=== PATIENT | male | born 1990 | race Caucasian/White ===

== ENCOUNTER 2017-01-18 22:36 | Emergency (ER) | payer OTHER ==
[~2017-01-18] VITALS: Ht 188 cm; Wt 129.4 kg
[~2017-01-18 22:36] MED LIST: OXYC-57 PO
[2017-01-18 22:42] VITALS: TEMP 36.3; Ht 188 cm; Wt 129.4 kg
[2017-01-18] MEDS ORDERED: ONDANSETRON INJ 2 MG/ML 2 ML VIAL IV STA (22:51)
[2017-01-18] MEDS ORDERED: SODIUM CHLORIDE 0.9% 1000ML 1,000 ML, SODIUM CHLORIDE 0.9% 1000ML 1,000 ML IV ONE (23:00)
[2017-01-18] MEDS ORDERED: ONDANSETRON 8 MG/54 ML D5W ONE (23:09)
[2017-01-18 23:12] LABS: BASO % 0.1 %; BASO ABS # 0.01 K/uL (0-0.2); COMPLETE YES; HEMATOCRIT 49.7 % (42-52); IG% 0.4 %; LYMPH % 7.1 %; LYMPH ABS # 1.19 K/uL (1.2-3.4); MEAN CELL VOLUME 82.4 fL (80-100); MEAN CORPUSCULAR HEMOGLOBIN 29.9 pg (25-34); MEAN CORPUSCULAR HGB CONC 36.2 g/dl (32-36); MEAN PLATELET VOLUME 10.7 fL (7.4-10.4); MONO % 3.8 %; NEUT % 88.6 %; PLATELET COUNT 328 K/uL (130-400); RED BLOOD COUNT 6.03 M/uL (4.7-6.1); WHITE BLOOD COUNT 16.73 K/uL (4.8-10.8)
[2017-01-18 23:35] LABS: BUN/CREATININE RATIO 13.5 (10-20); CREATININE 2.4 mg/dl (0.60-1.40); POTASSIUM 4.2 mmol/L (3.5-5.1)
[2017-01-18 23:38] LABS: ALB/GLOB RATIO 1.2 (0.9-2)
[2017-01-18] MEDS ORDERED: SODIUM CHLORIDE 0.9% 1000ML 1,000 ML IV ONE (23:45)
[2017-01-19] MEDS ORDERED: ONDA4TAB10 SL (02:31)
[2017-01-19] MEDS ORDERED: ONDANSETRON HOME PACK 4MG OD TAB PO ONE (02:45)
[2017-01-19 02:54] VITALS: BP 136/70; PULSE 74; O2SAT 98
--- NOTE | 2017-01-19 03:18 | EMERGENCY ROOM VISIT NOTE ---
History First contact with patient: 22:44 Chief Complaint: VOMITING Stated Complaint: VOMITING - CAN'T KEEP ANYTHING DOWN - STOMACH PAIN Nursing Triage Summary: patient c/o persistent vomiting since this am that has not improved along with abdominal pain/ History of Present Illness The patient is a 26 year old male who presents to the Emergency Room with complaints of vomiting for the past 10 hours. The patient states that he ate at a [employer] food restaurant for lunch, at about 2 hours later he began with his symptoms. The patient states that he has abdominal cramping just prior to the vomiting, and has felt nauseated ever since. He has not had diarrhea or constipation. He has not urinated in about 4 or 5 hours. The patient has not had fever or chills. No recent antibiotic use. No known exposure to disease. He rates his discomfort an 8/10. His emesis is primarily water at this point, but was initially food. He does not have a history of abdominal surgery considers himself otherwise usually healthy. Review of Systems More than 10 systems were reviewed and otherwise negative with the exception of history of present illness. Past Medical/Surgical History No chronic medical disease Family History No pertinent family history Social History Smoking Status: Never Smoker Housing Status: lives with family Occupation Status: employed Current/Historical Medications Scheduled Ondasetron Odt (Zofran Odt), 4 MG SL Q6H Physical Exam Vital Signs Date Time Temp Pulse Resp B/P (MAP) Pulse Ox O2 Delivery O2 Flow Rate FiO2 01/19/17 02:54 74 20 136/70 98 01/19/17 01:15 76 20 120/84 98 01/18/17 23:57 78 20 118/81 97 01/18/17 22:42 36.3 92 16 124/93 95 Room Air Pain Rating (0-10): 2.0 Physical Exam VITALS: Vitals are noted on the nurse's note and reviewed by myself. Vital signs stable. GENERAL: Well-developed, well-nourished, white male who is holding an emesis bag upon my arrival to the room. He appears uncomfortable but is cooperative with the examination. He does have some mild petechia around the orbits MOUTH: Mucous membranes moist. Tonsils are not enlarged. Pharynx without erythema, blood, or exudate. Uvula midline. Airway patent. NECK: Supple without nuchal rigidity. No lymphadenopathy. No thyromegaly. Cervical spine is nontender. HEART: Regular rate and rhythm without murmurs gallops or rubs. LUNGS: Clear to auscultation bilaterally without wheezes, rales or rhonchi. No retractions or accessory muscle use. ABDOMEN: Positive normal bowel sounds x 4. Soft, nontender, without masses or organomegaly. No guarding or rebound tenderness. SKIN: The skin was without rash or tenting Medical Decision & Procedures Laboratory Results 01/18/17 23:00 Red Blood Count 6.03, Mean Corpuscular Volume 82.4, Mean Corpuscular Hemoglobin 29.9, Mean Corpuscular Hemoglobin Concent 36.2, Mean Platelet Volume 10.7, Neutrophils (%) (Auto) 88.6, Lymphocytes (%) (Auto) 7.1, Monocytes (%) (Auto) 3.8, Eosinophils (%) (Auto) 0.0, Basophils (%) (Auto) 0.1, Neutrophils # (Auto) 14.83, Lymphocytes # (Auto) 1.19, Monocytes # (Auto) 0.63, Eosinophils # (Auto) 0.00, Basophils # (Auto) 0.01 01/18/17 23:00 Test 01/18/17 23:00 White Blood Count 16.73 K/uL (4.8-10.8) Red Blood Count 6.03 M/uL (4.7-6.1) Hemoglobin 18.0 g/dL (14.0-18.0) Hematocrit 49.7 % (42-52) Mean Corpuscular Volume 82.4 fL (80-100) Mean Corpuscular Hemoglobin 29.9 pg (25-34) Mean Corpuscular Hemoglobin Concent 36.2 g/dl (32-36) Platelet Count 328 K/uL (130-400) Mean Platelet Volume 10.7 fL (7.4-10.4) Neutrophils (%) (Auto) 88.6 % Lymphocytes (%) (Auto) 7.1 % Monocytes (%) (Auto) 3.8 % Eosinophils (%) (Auto) 0.0 % Basophils (%) (Auto) 0.1 % Neutrophils # (Auto) 14.83 K/uL (1.4-6.5) Lymphocytes # (Auto) 1.19 K/uL (1.2-3.4) Monocytes # (Auto) 0.63 K/uL (0.11-0.59) Eosinophils # (Auto) 0.00 K/uL (0-0.5) Basophils # (Auto) 0.01 K/uL (0-0.2) RDW Standard Deviation 39.5 fL (36.4-46.3) RDW Coefficient of Variation 13.2 % (11.5-14.5) Immature Granulocyte % (Auto) 0.4 % Immature Granulocyte # (Auto) 0.07 K/uL (0.00-0.02) Anion Gap 12.0 mmol/L (3-11) Est Creatinine Clear Calc Drug Dose 66.1 ml/min Estimated GFR () 41.3 Estimated GFR (Non- 35.6 BUN/Creatinine Ratio 13.5 (10-20) Calcium Level 11.0 mg/dl (8.5-10.1) Total Bilirubin 0.8 mg/dl (0.2-1) Aspartate Amino Transf (AST/SGOT) 34 U/L (15-37) Alanine Aminotransferase (ALT/SGPT) 53 U/L (12-78) Alkaline Phosphatase 59 U/L (45-117) Total Protein 10.1 gm/dl (6.4-8.2) Albumin 5.6 gm/dl (3.4-5.0) Globulin 4.5 gm/dl (2.5-4.0) Albumin/Globulin Ratio 1.2 (0.9-2) Lipase 85 U/L (73-393) Medications Administered Medications (Trade) Dose Ordered Sig/Bernice Route Start Time Stop Time Status Last Admin Dose Admin Sodium Chloride/ Sodium Chloride 2,000 ml @ 999 mls/hr Q2H1M ONCE IV 01/18/17 23:00 01/19/17 01:00 DC 01/18/17 23:11 999 MLS/HR Ondansetron HCl (Zofran 8mg Iv) 8 mg STK-MED ONCE .ROUTE 01/18/17 23:09 01/18/17 23:10 DC 01/18/17 23:11 8 MG Sodium Chloride 1,000 ml @ 999 mls/hr Q1H1M ONCE IV 01/18/17 23:45 01/19/17 00:45 DC 01/18/17 23:57 999 MLS/HR Ondansetron HCl (ZOFRAN ODT 4MG Home Pack) 1 [facility] UD ONCE PO 01/19/17 02:45 01/19/17 02:46 DC 01/19/17 02:39 1 [facility] ED Course Physical exam and history were performed. Nursing notes, EMR, and Medication List were personally reviewed. Patient appears to have had vomiting essentially for the past 10 hours. The patient has some petechia around his eyes, concerning for episodes of violent emesis. IV access was established and labs were obtained. The patient was hydrated with 2 L normal saline and given 8 mg IV Zofran. The patient blood work is as above and was reviewed. He does have an elevated white blood cell count which was expected considering his emesis. Additionally he has a slight bump in his BUN/creatinine, which is suggestive of dehydration. He does not have a significant electrolyte imbalance otherwise. The patient was given a third liter of normal saline. On reevaluation the patient had significant improvement of his symptoms. He was able to sleep here in the emergency department comfortably. I woke patient up and his nausea was significantly improved. He was able to urinate here in the department as well as tolerate hydration by mouth. I discussed options of care with the patient including hospital admission to the hospital for further care. The patient had a strong preference for discharge home, and seeing that he appears stable and significantly improve this is reasonable. I suspect his symptoms are the result of a viral or foodborne illness. I will provide the patient a course of Zofran for home use, as well as instructions for oral hydration at home. Recommend the patient follow with his primary care physician for repeat blood work, but he states that he does not have a PCP. I did engage case management who will help the patient establish appropriate care. The patient was otherwise invited back to the ER with any new, worsening, or concerning symptoms. The chart was completed utilizing [employer] Speech Voice Recognition Software. Grammatical errors, random word insertions, pronoun errors, and incomplete sentences are an occasional consequence of this system due to software limitations, ambient noise, and hardware issues. Any formal questions or concerns about the content, text, or information contained within the body of this dictation should be directly addressed to the provider for clarification. . Medical Decision Differential diagnosis: Etiologies such as gastroenteritis, food borne illness, infections, appendicitis , diverticulitis, inflammatory bowel disease, obstruction, GI bleed, biliary pathology, as well as others were entertained. Medication Reconcilliation Current Medication List: was personally reviewed by me Blood Pressure Screening Blood pressure disposition: Elevated BP felt to be situational Impression Primary Impression: Nausea and vomiting Additional Impression: Dehydration Departure Information Dispostion Home / Self-Care Condition GOOD Prescriptions Ondasetron Odt (ZOFRAN ODT) 4 Mg Tab 4 MG SL Q6H for Nausea, #10 TAB Prov: Joni Correa PA-C 01/19/17 Forms HOME CARE DOCUMENTATION FORM, IMPORTANT VISIT INFORMATION Patient Instructions My [facility] Additional Instructions You were seen and evaluated today on an emergency basis only. This is not a substitute for, or an effort to provide, complete comprehensive medical care. It is not possible to recognize and treat all injuries or illnesses in a single emergency department visit. For this reason it is recommended that you followup with your primary care physician next week for ongoing care and evaluation. Use the resources provided by case management to help establish with a primary care physician. You will need repeat blood work to make sure your kidney function has returned to normal. Drink plenty of water and remain well hydrated. Zofran 1 tablet every 6 hrs as needed for nausea. You are welcome to return to the emergency department anytime with new, worsening, or concerning symptoms. Problem Qualifiers
== END 2017-01-19 02:54 | disposition home or self-care (01) ==
LOC: C.EDB 22:37
DX: R11.2 Nausea with vomiting, unspecified (principal); E86.0 Dehydration

== ENCOUNTER 2023-12-08 10:53 | Inpatient (IN) ==
[2023-12-08] MEDS: KETOROLAC TROMETHAMINE 15 MG/ML VIAL IM STA (11:42)
--- NOTE | 2023-12-08 11:46 | Emergency Department Note ---
Impression & Plan T12 compression fracture, Closed T11 fracture ED Provider Note NAME: LORETO MAYER III AGE: 33 SEX: M : 1990 ARRIVES VIA: Walk-In INFORMANT: [Patient][, ] ED PROVIDER(S): [Higinio Segura MD] CHIEF COMPLAINT: Fall downstairs HPI: This is a 33-year-old male senting for fall downstairs. Patient states that he was drinking alcohol last night when he walked into a dark part of the house and fell down a flight of stairs. He states he does not member exactly how he fell down but is never the incident and did not lose consciousness at that time. He did not blackout. He notes 9/10 pain in his lower back. He notes pain with range of motion. No numbness, tingling. He has had previous cervical spine surgery and does not have any pain there. No head pain. No pain to extremities. Does have slight abrasions to the bilateral upper extremities. ROS: See above HPI for pertinent positives & negatives. A total of [10] systems reviewed and were otherwise negative. PHYSICAL EXAMINATION: General: resting comfortably in no acute distress Head: Normocephalic and atraumatic Eyes: Normal inspection, extraocular muscles intact Ear, nose, throat: Normal external exam Neck: Normal range of motion Respiratory: lungs clear to auscultation bilaterally Cardiovascular: Regular rate/rhythm, no murmur Back: Lower thoracic upper lumbar tenderness to palpation, no obvious step-offs GI: soft, nontender, no guarding or rebound Extremities: nontender, moves all extremities Neuro: The patient awake and alert, appropriately conversive, no focal deficits, symmetric faces Skin: Warm, dry, and intact MEDICAL DECISION MAKING: This is a 33-year-old male presenting after a fall downstairs. Patient notes lower thoracic/upper lumbar pain. Will do CT of such to help with elucidate any compression fractures. No cauda equina type symptoms at this time. No cord type syndromes clinically. -CT imaging does reveal a T11 superior endplate fracture with mild displacement. Otherwise there is a compression fracture of T12 with 5 mm retropulsion. -Discussed care with Dr. Kirk, orthopedic spinal surgeon, who recommends admission for pain control and back brace -[facility] -Routine blood work ordered for hospital service Differential diagnosis: Compression fracture, lumbar radiculopathy, cauda equina Past Med/Surg History Problem List (Updated 12/08/23 @ 16:20 by Higinio Segura MD) T12 compression fracture (Acute) Closed T11 fracture (Acute) Fall No significant past medical history Surgical History S/P cervical spinal fusion ACDF C6-7, Posterior fusion C5-7 for trauma 2011 History of arthroscopy of knee History of tonsillectomy Social History Smoking Status: Current some day smoker Preferred Language: British Feels Safe at Home: Yes Allergies Allergies Allergy/AdvReac Type Severity Reaction Status Date / Time Sulfa (Sulfonamide Allergy Hives Unverified 12/08/23 14:19 Antibiotics) Home Meds Home Medications Medication Instructions Recorded Confirmed Tylenol 1 tab PO UD PRN Pain 12/08/23 12/08/23 Previous Rx's Medication Instructions Recorded ondansetron 4 mg disintegrating 4 mg PO Q6H PRN nausea and 11/19/19 tablet vomiting #20 tabs promethazine 25 mg tablet 25 mg PO Q6H PRN nausea and 11/19/19 vomiting #20 tabs Results & Data (ED) Vital Signs Vital Signs - 24 hr 12/08/23 10:57 12/08/23 13:16 12/08/23 15:44 Temperature 36.8 C Temperature Source Temporal Artery Scan Pulse Rate 84 Pulse Rate [Left Finger] 70 89 Respiratory Rate 18 17 20 Respiratory Effort / Characteristics Non-Labored Spontaneous Respiratory Depth Normal Blood Pressure 129/78 Blood Pressure [Left Arm] 131/84 131/82 Blood Pressure Mean 95 Blood Pressure Mean [Left Arm] 99 98 Blood Pressure Position [Left Arm] Lying Pulse Oximetry 100 98 97 Oxygen Delivery Method Room Air Room Air Room Air Sepsis Recent Fever Within 48 Hours No Sepsis New/Unexplained Change in Mental Status No Sepsis Action Taken by Nursing No Action Required Laboratory Data 12/08/23 13:45 12/08/23 13:45 Lab Results 12/08/23 Range/Units 13:45 WBC 14.00 H (4.8-10.8) K/ul RBC 4.93 (4.70-6.10) M/uL Hgb 14.2 (14.0-18.0) g/dl Hct 42.5 (42.0-52.0) % MCV 86.2 (80.0-100.0) fL MCH 28.8 (25.0-34.0) pg MCHC 33.4 (32.0-36.0) g/dL RDW Std Deviation 43.5 (36.4-46.3) fL RDW Coeff of Amy 13.9 (11.5-14.5) % Plt Count 199 (130-400) K/uL MPV 10.6 (9.4-12.4) fL Immature Gran % (Auto) 0.5 % Neut % (Auto) 78.3 % Lymph % (Auto) 15.2 % [place] % (Auto) 5.5 % Eos % (Auto) 0.3 % Baso % (Auto) 0.2 % Neut # (Auto) 10.96 H (1.40-6.50) K/uL Lymph # (Auto) 2.13 (1.20-3.40) K/uL [place] # (Auto) 0.77 H (0.11-0.59) K/uL Eos # (Auto) 0.04 (0.00-0.50) K/uL Baso # (Auto) 0.03 (0.00-0.20) K/uL Immature Gran # (Auto) 0.07 (0.01-0.20) K/uL Sodium 142 (136-145) mmol/L Potassium 4.0 (3.5-5.1) mmol/L Chloride 106 (98-107) mmol/L Carbon Dioxide 27 (21-32) mmol/L Anion Gap 9 (3-11) BUN 11 (6-23) mg/dl Creatinine 0.89 (0.6-1.4) mg/dl Est Cr Clr Drug Dosing 132.2 ml/min Est GFR ( Amer) 129.3 ml/min Est GFR (Non-Af Amer) 111.6 ml/min BUN/Creatinine Ratio 12.4 (10-20) Glucose 87 (70-99(Fasting)) mg/dl Calcium 9.1 (8.6-10.3) mg/dl Administered Medications Discontinued Medications Ketorolac Tromethamine (Ketorolac Tromethamine 15 Mg/Ml Vial) 15 mg IM NOW STA Stop: 12/08/23 11:39 Last Admin: 12/08/23 11:42 Dose: 15 mg Documented By: SANTIAGO Oxycodone HCl (Oxycodone Hcl Ir 5 Mg Tab (Immediate Release)) 5 mg PO NOW STA Stop: 12/08/23 12:32 Last Admin: 12/08/23 12:36 Dose: 5 mg Documented By: SANTIAGO Imaging Data Radiologist's Impression: Lumbar Spine CT 12/08/23 11:36 CT lumbar spine wo con CLINICAL HISTORY: fall, lower thoracic, upper lumbar pain TECHNIQUE: Multidetector row helical CT of the lumbar spine was performed without administration of intravenous contrast. Coronal and sagittal reformations were obtained. Automated dose lowering techniques and/or adjustment according to patient size were utilized for this exam. CT DOSE: 2132.35 mGy.cm Comparison: None available at the time of this dictation. FINDINGS: For counting purposes, the last complete intervertebral disc space is considered L5-S1. No acute fractures are identified in the lumbar spine. Vertebral body heights and disk spaces are well maintained. Vertebral body alignment is within normal limits. Surrounding soft tissues are unremarkable. IMPRESSION: No acute fractures of the lumbar spine. Please see CT thoracic spine for findings of T11 and T12 fractures. ACT 112: Negative or not required by law. Electronically signed by: Junior Thomas M.D. 12/08/2023 1:[address] 12/08/23 11:36 CT thoracic spine wo con CLINICAL HISTORY: fall, lower thoracic, upper lumbar pain TECHNIQUE: Multidetector row helical CT of the thoracic spine was performed without administration of intravenous contrast. Coronal and sagittal reformations were obtained. Automated dose lowering techniques and/or adjustment according to patient size were utilized for this exam. Comparison: Comparison is made to CT thoracic spine 09/02/2011 FINDINGS: There is an acute compression fracture of T12 with approximately 5 mm retropulsion. There is also a minimally displaced fracture of the superior endplate of T11. Vertebral body alignment is within normal limits. Surrounding soft tissues are unremarkable. IMPRESSION: Compression fractures are seen in T11 and T12, there is 5 mm retropulsion at T12 fracture. ACT 112: Negative or not required by law. Electronically signed by: Junior Thomas M.D. 12/08/2023 12:51 PM Discharge Plan Visit Data Chief Complaint: Back Injury/Pain Stated Complaint: BACK PAIN, FALL DOWN STAIRS LAST NIGHT ED Provider: Higinio Segura Discharge Problem: T12 compression fracture, Closed T11 fracture Patient Disposition: Admitted As Inpatient Discharge Instructions Interventions: ED Discharge Assessment Last Done: 12/08/23 15:51 Forms Stand Alone Forms: [facility], [facility], Important Visit Information Prescriptions Prescriptions: No Action promethazine 25 mg tablet 25 mg PO Q6H PRN (Reason: nausea and vomiting) Qty: 20 0RF ondansetron 4 mg tablet,disintegrating 4 mg PO Q6H PRN (Reason: nausea and vomiting) Qty: 20 0RF Tylenol 1 tab PO UD PRN (Reason: Pain) Rx Instructions: otc, as directed Referrals Referrals: PCP,NO [Primary Care Provider] -
[2023-12-08] MEDS: oxyCODONE HCL IR 5 MG TAB (IMMEDIATE RELEASE) PO STA (12:36)
--- NOTE | 2023-12-08 12:54 | CT Scan Report ---
CT thoracic spine wo con CLINICAL HISTORY: fall, lower thoracic, upper lumbar pain TECHNIQUE: Multidetector row helical CT of the thoracic spine was performed without administration of intravenous contrast. Coronal and sagittal reformations were obtained. Automated dose lowering techn iques and/or adjustment according to patient size were utilized for this exam. Comparison: Comparison is made to CT thoracic spine 09/02/2011 FINDINGS: There is an acute compression fracture of T12 with approximately 5 mm retropulsion. There is also a m inimally displaced fracture of the superior endplate of T11. Vertebral body alignment is within jayy l limits. Surrounding soft tissues are unremarkable. IMPRESSION: Compression fractures are seen in T11 and T12, there is 5 mm retropulsion at T12 fracture. ACT 112: Negative or not required by law. Electronically signed by: Junior Thomas M.D. 12/08/2023 12:51 PM
--- NOTE | 2023-12-08 13:27 | CT Scan Report ---
CT lumbar spine wo con CLINICAL HISTORY: fall, lower thoracic, upper lumbar pain TECHNIQUE: Multidetector row helical CT of the lumbar spine was performed without administration of i ntravenous contrast. Coronal and sagittal reformations were obtained. Automated dose lowering techniq ues and/or adjustment according to patient size were utilized for this exam. CT DOSE: 2132.35 mGy.cm Comparison: None available at the time of this dictation. FINDINGS: For counting purposes, the last complete intervertebral disc space is considered L5-S1. No acute fractures are identified in the lumbar spine. Vertebral body heights and disk spaces are wel l maintained. Vertebral body alignment is within normal limits. Surrounding soft tissues are unremark able. IMPRESSION: No acute fractures of the lumbar spine. Please see CT thoracic spine for findings of T11 and T12 frac tures. ACT 112: Negative or not required by law. Electronically signed by: Junior Thomas M.D. 12/08/2023 1:26 PM
[2023-12-08 14:12] LABS: Basophils # (auto) 0.03 K/uL (0.00-0.20); Basophils % (auto) 0.2 %; Eosinophils # (auto) 0.04 K/uL (0.00-0.50); Eosinophils % (auto) 0.3 %; Hematocrit (blood only) 42.5 % (42.0-52.0); Hemoglobin 14.2 g/dl (14.0-18.0); Immature Granulocytes # (auto) 0.07 K/uL (0.01-0.20); Immature Granulocytes % (auto) 0.5 %; Lymphocytes # (auto) 2.13 K/uL (1.20-3.40); Lymphocytes % (auto) 15.2 %; Mean Corpuscular Hemoglobin 28.8 pg (25.0-34.0); Mean Corpuscular Hgb Conc 33.4 g/dL (32.0-36.0); Mean Corpuscular Volume 86.2 fL (80.0-100.0); Mean Platelet Volume 10.6 fL (9.4-12.4); Monocytes # (auto) 0.77 K/uL (0.11-0.59); Monocytes % (auto) 5.5 %; Neutrophils # (auto) 10.96 K/uL (1.40-6.50); Neutrophils % (auto) 78.3 %; Platelet Count 199 K/uL (130-400); RDW Coefficient of Variation 13.9 % (11.5-14.5); RDW Standard Deviation 43.5 fL (36.4-46.3); Red Blood Count 4.93 M/uL (4.70-6.10)
--- NOTE | 2023-12-08 14:14 | History & Physical Report ---
Date of Service December 08, 2023 Assessment & Plan (1) Fall: (2) Closed T11 fracture: (3) T12 compression fracture: Plan 33 year old man presented with back pain after fall CT Thoracic and Lumbar spine showed T11 and T12 fracture Admit for observation, pain control and Ortho Spine surgery evaluation Scheduled tylenol Oxycodone prn mild to moderate pain IV morphine 2mg q6h prn severe pain Bowel regimen Lidocaine patch PT/OT eval Ortho spine surgery consulted. Will keep NPO PMN in case surgery is needed May need brace Counseled regarding smoking and alcohol use DVT ppx: SCD for now Code status: Full Code I spent a total of 60 minutes coordinating, documenting and providing care for this patient excluding time spent in performance of separately billed services History of Present Illness Chief Complaint: Back pain Primary Care Provider: NO PCP 33 year old man with history of cervical surgery about 9 years ago who presents with acute back pain that started after a fall yesterday. History provided by patient and parents at bedside He was at his [id number]'s wedding yesterday and had fallen down some stairs. He reported it was dark there and missed his step. He denied any head trauma or LOC Developed back pain which is constant, severe, not referred, worse with movement Denied any Lower extremity paresthesias, saddle paresthesia, bowel/urinary incontinence Denied cough, chest pain, SOB Denied headache, dizziness, nausea, vomiting, abd pain, diarrhea, constipation Denied dysuria, freq, urgency, hematuria Denied fever or chills He reported he had drank some alcohol at the event. Does not drink daily. Last drink before the event was a year ago Reports medical marijuana use for his chronic neck pain. No neck pain at the moment Smokes a few cigarettes occasionally. Not daily. Chews tobacco Denied any other drug use Denied Family med hx Reports allergic reaction to Sulfa drugs (Hives) Allergies Allergy/AdvReac Type Severity Reaction Status Date / Time Sulfa (Sulfonamide Allergy Hives Unverified 12/08/23 14:19 Antibiotics) Home Medications Medication Instructions Recorded Confirmed Type ondansetron 4 mg disintegrating 4 mg PO Q6H PRN nausea and 11/19/19 12/08/23 Rx tablet vomiting #20 tabs promethazine 25 mg tablet 25 mg PO Q6H PRN nausea and 11/19/19 12/08/23 Rx vomiting #20 tabs Tylenol 1 tab PO UD PRN Pain 12/08/23 12/08/23 History Past Med/Surg History Problem List (Updated 12/08/23 @ 14:50 by Janis Galvan MD) T12 compression fracture Closed T11 fracture Fall No significant past medical history Surgical History S/P cervical spinal fusion ACDF C6-7, Posterior fusion C5-7 for trauma 2011 History of arthroscopy of knee History of tonsillectomy Social History Smoking Status: Current some day smoker Preferred Language: Bengali Feels Safe at Home: Yes Review of Systems Review of Systems: All systems reviewed & are unremarkable except as noted in HPI & below Physical Exam Constitutional: + well hydrated; no acute distress Eyes: PERRL, conjunctivae normal, anicteric sclerae ENMT: external ear and nose normal, oropharynx normal Respiratory: normal respiratory effort, lungs clear to auscultation Cardiovascular: RRR, no murmur, no edema Gastrointestinal (Abdomen): normal bowel sounds, soft, nontender, no hepatosplenomegaly Musculoskeletal: no cyanosis or clubbing, extremities motor strength 5/5 Tenderness over lower Thoracic spine No pedal edema Neurologic: PERRL, EOMI, accommodation nl, no face palsy, no dysarthria Psychiatric: A+Ox3, euthymic affect Results & Data Results & Data Vital Signs (Past 12 Hours) Vital Signs Temp Pulse Pulse Resp BP BP Pulse Ox 12/08/23 13:16 70 17 131/84 98 12/08/23 10:57 36.8 C 84 18 129/78 100 O2 Del Method 12/08/23 13:16 Room Air 12/08/23 10:57 Room Air Laboratory Results Abnormal lab results 12/08/23 Range/Units 13:45 WBC 14.00 H (4.8-10.8) K/ul Neut # (Auto) 10.96 H (1.40-6.50) K/uL [place] # (Auto) 0.77 H (0.11-0.59) K/uL Diagnostic Findings CT thoracic spine wo con CLINICAL HISTORY: fall, lower thoracic, upper lumbar pain TECHNIQUE: Multidetector row helical CT of the thoracic spine was performed without administration of intravenous contrast. Coronal and sagittal reformations were obtained. Automated dose lowering techniques and/or adjustment according to patient size were utilized for this exam. Comparison: Comparison is made to CT thoracic spine 09/02/2011 FINDINGS: There is an acute compression fracture of T12 with approximately 5 mm retropulsion. There is also a minimally displaced fracture of the superior endplate of T11. Vertebral body alignment is within normal limits. Surrounding soft tissues are unremarkable. IMPRESSION: Compression fractures are seen in T11 and T12, there is 5 mm retropulsion at T12 fracture. CT lumbar spine wo con CLINICAL HISTORY: fall, lower thoracic, upper lumbar pain TECHNIQUE: Multidetector row helical CT of the lumbar spine was performed without administration of intravenous contrast. Coronal and sagittal reformations were obtained. Automated dose lowering techniques and/or adjustment according to patient size were utilized for this exam. CT DOSE: 2132.35 mGy.cm Comparison: None available at the time of this dictation. FINDINGS: For counting purposes, the last complete intervertebral disc space is considered L5-S1. No acute fractures are identified in the lumbar spine. Vertebral body heights and disk spaces are well maintained. Vertebral body alignment is within normal limits. Surrounding soft tissues are unremarkable. IMPRESSION: No acute fractures of the lumbar spine. Please see CT thoracic spine for findings of T11 and T12 fractures. Code Status & VTE Plan Code Status Full code
[2023-12-08 14:26] LABS: BUN Creatinine Ratio 12.4 (10-20); Calcium 9.1 mg/dl (8.6-10.3); Creatinine Clr Calc Pharmacy 132.2 ml/min; Est GFR (African American) 129.3 ml/min; Est GFR (Non-African American) 111.6 ml/min
[2023-12-08] MEDS ORDERED: POLYETHYLENE (MIRALAX) 17 GM PACK PO PRN (16:38)
[2023-12-08] MEDS: MoRPHine SULFATE 2 MG/ML CARP IV PRN (16:50)
[2023-12-08] MEDS: ONDANSETRON 4 MG OD TAB PO PRN (16:52)
[2023-12-08] MEDS: LIDOCAINE 5% 1 PATCH TD SCH (17:59)
[2023-12-08] MEDS: ACETAMINOPHEN 500 MG TAB PO SCH (20:43)
[2023-12-08] MEDS: oxyCODONE HCL IR 5 MG TAB (IMMEDIATE RELEASE) PO PRN (20:44)
[2023-12-09] MEDS: oxyCODONE HCL IR 5 MG TAB (IMMEDIATE RELEASE) PO PRN (01:10)
[2023-12-09 07:36] LABS: Hematocrit (blood only) 40.7 % (42.0-52.0); Hemoglobin 13.5 g/dl (14.0-18.0); Mean Corpuscular Hemoglobin 28.8 pg (25.0-34.0); Mean Corpuscular Hgb Conc 33.2 g/dL (32.0-36.0); Mean Corpuscular Volume 86.8 fL (80.0-100.0); Mean Platelet Volume 10.6 fL (9.4-12.4); Platelet Count 168 K/uL (130-400); RDW Coefficient of Variation 13.8 % (11.5-14.5); RDW Standard Deviation 43.4 fL (36.4-46.3); Red Blood Count 4.69 M/uL (4.70-6.10); White Blood Count 12.41 K/ul (4.8-10.8)
[2023-12-09 08:04] LABS: Albumin Globulin Ratio 1.8 (0.9-2); Albumin Level 4.1 gm/dl (3.4-5.0); BUN Creatinine Ratio 13.5 (10-20); Bilirubin,Total 0.9 mg/dl (0.2-1.0); Calcium 8.7 mg/dl (8.6-10.3); Creatinine Clr Calc Pharmacy 113.1 ml/min; Est GFR (African American) 108.1 ml/min; Est GFR (Non-African American) 93.2 ml/min; Globulin 2.3 gm/dl (2.5-4.0); Potassium 3.7 mmol/L (3.5-5.1); Total Protein 6.4 gm/dl (6.0-8.3)
[2023-12-09] MEDS: SENNA 8.6 MG TAB PO SCH (08:25)
--- NOTE | 2023-12-09 09:21 | Orthopedic Consultation ---
Date of Consultation December 09, 2023 Assessment & Plan (1) T12 compression fracture: Assessment T11 compression fracture T12 burst type fracture. Plan at this time at length yesterday with the patient regarding his fracture patterns and treatment options. At this point we will attempt to treat these nonoperative. Will have him placed with a TLSO brace. Once this is available we will attempt physical therapy. I would like to obtain thoracolumbar x-rays most likely Saturday after he has been up with therapy. He is to lift no more than 5 pounds. Maintain bowel regimen. History of Present Illness Reason for Consultation: T11-T12 compression fracture Attending Physician: Janis Galvan MD History of Present Illness This is a 33-year-old male who presents after fall Saturday evening. He fell down some steps. It was dark and was unable to navigate stairs. He describes mid thoracolumbar back pain. There is no numbness tingling into the lower extremities or perineal area. He denies any strength deficits. Allergies Allergy/AdvReac Type Severity Reaction Status Date / Time Sulfa (Sulfonamide Allergy Hives Unverified 12/08/23 14:19 Antibiotics) Home Medications Medication Instructions Recorded Confirmed Type ondansetron 4 mg disintegrating 4 mg PO Q6H PRN nausea and 11/19/19 12/08/23 Rx tablet vomiting #20 tabs promethazine 25 mg tablet 25 mg PO Q6H PRN nausea and 11/19/19 12/08/23 Rx vomiting #20 tabs Tylenol 1 tab PO UD PRN Pain 12/08/23 12/08/23 History Patient History Surgical History S/P cervical spinal fusion ACDF C6-7, Posterior fusion C5-7 for trauma 2011 History of arthroscopy of knee History of tonsillectomy Social History Smoking Status: Current every day smoker Tobacco Type: Cigarettes Second Hand Exposure: Yes; Do You Dip or Chew Tobacco: Yes; Tobacco Cessation Education Requested by Patient: No Hx Alcohol Use: Yes Alcohol type: hard liquor Hx Substance Use: Yes Last Used Substance Other:: smokes marijuana yesterday Preferred Language: Swedish Communication Ability: Effective Esol Instructor Required: No Beliefs That Will Affect Care: None Current Living Situation: Spouse and Family Other Information That Helps Us Care for You: No Feels Safe at Home: Yes Safety Concerns: Feels Safe At This Time Assistive Devices: None Physical Exam Physical Exam: On exam patient is lying in bed. He has excellent strength detailed testing lower extremities with plantarflexion dorsiflexion quadriceps. Sensory is symmetric and intact. Results & Data Vital Signs (Past 12 Hours) Vital Signs Temp Pulse Resp BP Pulse Ox O2 Del Method 12/09/23 07:10 36.5 C 52 L 18 146/82 H 99 Room Air 12/08/23 21:34 Room Air
--- NOTE | 2023-12-09 11:32 | Hospitalist Progress Note ---
Date of Service December 09, 2023 Assessment & Plan (1) Fall: (2) Closed T11 fracture: (3) T12 compression fracture: Plan 33 year old man presented with back pain after fall CT Thoracic and Lumbar spine showed T11 and T12 fracture Continue scheduled tylenol Oxycodone prn mild to moderate pain IV morphine 2mg q6h prn severe pain Bowel regimen Lidocaine patch Ortho spine surgeon vania noted. Dr Kirk recommends to attempt to treat nonoperatively. Ordered orthortics c/s for TLSO brace and get PT afterwards. Surgeon will get thoracolumbar XR on Saturday after he has been up with therapy Patient is not to lift more than 5lb Provided more counselling regarding smoking and alcohol use DVT ppx: SCD for now Code status: Full Code I spent a total of 50 minutes coordinating, documenting and providing care for this patient excluding time spent in performance of separately billed services Admission and Anticipated Discharge Date Admission Date: December 08, 2023 Subjective Patient seen and examined. Reports improvement in back pain. Reports pain to be 6/10 at this time. Same characteristics as on admission [not referred, worse with movt] Denied any other complaints on ROS Physical Exam Constitutional: + well hydrated; no acute distress Eyes: PERRL, conjunctivae normal, anicteric sclerae ENMT: external ear and nose normal, oropharynx normal Respiratory: normal respiratory effort, lungs clear to auscultation Cardiovascular: RRR, no murmur, no edema Gastrointestinal (Abdomen): normal bowel sounds, soft, nontender, no hepatosplenomegaly Musculoskeletal: no cyanosis or clubbing, extremities motor strength 5/5 Tenderness over lower Thoracic spine Neurologic: PERRL, EOMI, accommodation nl, no face palsy, no dysarthria Psychiatric: A+Ox3, euthymic affect Results & Data Results & Data Vital Signs (Past 12 Hours) Vital Signs Temp Pulse Resp BP Pulse Ox O2 Del Method 12/09/23 07:10 36.5 C 52 L 18 146/82 H 99 Room Air Laboratory Results Abnormal lab results 12/09/23 Range/Units 07:01 WBC 12.41 H (4.8-10.8) K/ul RBC 4.69 L (4.70-6.10) M/uL Hgb 13.5 L (14.0-18.0) g/dl Hct 40.7 L (42.0-52.0) % Globulin 2.3 L (2.5-4.0) gm/dl
--- NOTE | 2023-12-10 08:26 | Orthopedic Progress Note ---
Date of Service December 10, 2023 Assessment & Plan (1) T12 compression fracture: Plan: At this point I would like to obtain standing x-rays of the thoracolumbar spine to assess fracture alignment. If his pain is controlled today and he tolerates physical therapy it has reasonable for him to be discharged home tomorrow. He understands he is not to lift more than 5 pounds. Admission and Anticipated Discharge Date Admission Date: December 09, 2023 Subjective Patient is in the chair at the bedside. His pain is controlled. He tolerated ambulation. Physical Exam Physical Exam: Patient has good strength testing lower extremities. Sensory is intact. Brace is in place.
--- NOTE | 2023-12-10 10:57 | Hospitalist Progress Note ---
Date of Service December 10, 2023 Assessment & Plan (1) Fall: (2) Closed T11 fracture: (3) T12 compression fracture: Plan 33 year old man presented with back pain after fall CT Thoracic and Lumbar spine showed T11 and T12 fracture Continue scheduled tylenol, prn oxycodone Bowel regimen Lidocaine patch Ortho spine surgeon eval noted. Patient has TLSO brace. PT eval noted Thoracolumbar XR today reviewed Surgeon recommends possible dc tomorrow Patient is not to lift more than 5lb DVT ppx: SCD for now Code status: Full Code I spent a total of 35 minutes coordinating, documenting and providing care for this patient excluding time spent in performance of separately billed services Admission and Anticipated Discharge Date Admission Date: December 09, 2023 Subjective Patient seen and examined Reports pain is controlled Just walked with PT with his brace Physical Exam Constitutional: + well hydrated; no acute distress Eyes: PERRL, conjunctivae normal, anicteric sclerae ENMT: external ear and nose normal, oropharynx normal Respiratory: normal respiratory effort, lungs clear to auscultation Cardiovascular: RRR, no murmur, no edema Gastrointestinal (Abdomen): normal bowel sounds, soft, nontender, no hepatosplenomegaly Musculoskeletal: no cyanosis or clubbing, extremities motor strength 5/5 Neurologic: PERRL, EOMI, accommodation nl, no face palsy, no dysarthria Psychiatric: A+Ox3, euthymic affect Results & Data Results & Data Vital Signs (Past 12 Hours) Vital Signs Temp Pulse Resp BP Pulse Ox O2 Del Method 12/10/23 07:34 36.6 C 50 L 16 128/85 98 Room Air
--- NOTE | 2023-12-10 13:04 | XRay Report ---
THORACIC SPINE 3 VIEWS HISTORY: Thoracic spine fractures. Follow-up. standing films with brace attn T11 T12 COMPARISON: Thoracic spine CT 12/08/2023. FINDINGS: Acute mild superior endplate compression fracture at T11 and acute mild to moderate super e ndplate compression fracture at T12. These remain unchanged compared to the prior CT examination. The small retropulsed fragment at T12 is better appreciated on the recent CT examination. No additional fractures identified within the thoracic spine. No subluxation. Disc spaces are preserved. Cervical s ijeoma fusion hardware is partially visualized. IMPRESSION: No significant change in the acute superior endplate compression fractures at T11 and T12. ACT 112: Negative or not required by law. Electronically signed by: Lonnie Shabazz M.D. 12/10/2023 1:03 PM
[2023-12-10] MEDS: KETOROLAC TROMETHAMINE 15 MG/ML VIAL IV PRN (14:57)
[2023-12-10 19:34] VITALS: RESP 16
[2023-12-11 06:27] LABS: Hematocrit (blood only) 41.2 % (42.0-52.0); Hemoglobin 13.9 g/dl (14.0-18.0); Mean Corpuscular Hemoglobin 28.6 pg (25.0-34.0); Mean Corpuscular Hgb Conc 33.7 g/dL (32.0-36.0); Mean Corpuscular Volume 84.8 fL (80.0-100.0); Mean Platelet Volume 10.7 fL (9.4-12.4); Platelet Count 182 K/uL (130-400); RDW Coefficient of Variation 13.2 % (11.5-14.5); RDW Standard Deviation 41.4 fL (36.4-46.3); Red Blood Count 4.86 M/uL (4.70-6.10); White Blood Count 9.04 K/ul (4.8-10.8)
[2023-12-11 06:49] LABS: Creatinine Clr Calc Pharmacy 109.9 ml/min; Est GFR (African American) 104.4 ml/min; Est GFR (Non-African American) 90.1 ml/min; Potassium 3.8 mmol/L (3.5-5.1)
[2023-12-11 06:56] VITALS: BP 128/84; PULSE 52; TEMP 97.9; O2SAT 96
--- NOTE | 2023-12-11 09:35 | Orthopedic Progress Note ---
Date of Service December 11, 2023 Assessment & Plan (1) T12 compression fracture: Plan: At this time he is stable for discharge per orthopedics. He understands to wear stabilizer brace at all times when out of bed. He is to lift no more than 1 to 2 pounds. Will follow-up in 2 weeks for x-rays in our office. Admission and Anticipated Discharge Date Admission Date: December 09, 2023 Subjective Patient's back pain is controlled. He is tolerating the brace. Denies any numbness or tingling or weakness in the lower extremities. Physical Exam Physical Exam: Patient is in bed. He is comfortable. Is neurologically intact. Results & Data Vital Signs (Past 12 Hours) Vital Signs Temp Pulse Resp BP Pulse Ox O2 Del Method 12/11/23 06:55 36.6 C 52 L 16 128/84 96 Room Air
--- NOTE | 2023-12-11 11:33 | Discharge Summary ---
Date of Service December 11, 2023 Admission HPI Per Admitting Provider 33 year old man with history of cervical surgery about 9 years ago who presents with acute back pain that started after a fall yesterday. History provided by patient and parents at bedside He was at his [id number]'s wedding yesterday and had fallen down some stairs. He reported it was dark there and missed his step. He denied any head trauma or LOC Developed back pain which is constant, severe, not referred, worse with movement Denied any Lower extremity paresthesias, saddle paresthesia, bowel/urinary incontinence Denied cough, chest pain, SOB Denied headache, dizziness, nausea, vomiting, abd pain, diarrhea, constipation Denied dysuria, freq, urgency, hematuria Denied fever or chills He reported he had drank some alcohol at the event. Does not drink daily. Last drink before the event was a year ago Reports medical marijuana use for his chronic neck pain. No neck pain at the moment Smokes a few cigarettes occasionally. Not daily. Chews tobacco Denied any other drug use Denied Family med hx Reports allergic reaction to Sulfa drugs (Hives) Admission Exam Per Admitting Provider Physical Exam Constitutional: + well hydrated; no acute distress Eyes: PERRL, conjunctivae normal, anicteric sclerae ENMT: external ear and nose normal, oropharynx normal Respiratory: normal respiratory effort, lungs clear to auscultation Cardiovascular: RRR, no murmur, no edema Gastrointestinal (Abdomen): normal bowel sounds, soft, nontender, no hepatosplenomegaly Musculoskeletal: no cyanosis or clubbing, extremities motor strength 5/5 Tenderness over lower Thoracic spine No pedal edema Neurologic: PERRL, EOMI, accommodation nl, no face palsy, no dysarthria Psychiatric: A+Ox3, euthymic affect Principal Diagnosis Fall, Acute T11 and T12 fracture Discharge Exam General: awake, alert, no apparent distress, white male, wearing TSLO brace sitting up next to bed Head: Normocephalic, atraumatic ENT: PERRL, EOMI, no pharyngeal exudate, mucous membranes moist Chest: Clear to auscultation, on room air, no adventitious breath sounds Cardiac: Regular rate and rhythm, no murmur, no JVD, normal peripheral pulses, good capillary refill Abdominal: NABS x 4 quadrants, soft, nondistended, nontender to palpation, no rebound or guarding Extremities: Normal inspection, no peripheral edema or erythema, calfs nontender to palpation Psych: Normal mood and affect Neuro: AAO x 3, strength intact bilaterally and rated 5/5, no motor deficits, speech is clear, no peripheral sensory deficits Discharge Data Allergies Allergy/AdvReac Type Severity Reaction Status Date / Time Sulfa (Sulfonamide Allergy Hives Unverified 12/08/23 14:19 Antibiotics) Consultations 12/08/23 14:12 ED Decision to Admit Stat 12/08/23 14:38 Consult Orthopedic Spine Surgery Routine Procedures Performed CT lumbar spine wo con CLINICAL HISTORY: fall, lower thoracic, upper lumbar pain TECHNIQUE: Multidetector row helical CT of the lumbar spine was performed without administration of intravenous contrast. Coronal and sagittal reformations were obtained. Automated dose lowering techniques and/or adjustment according to patient size were utilized for this exam. CT DOSE: 2132.35 mGy.cm Comparison: None available at the time of this dictation. FINDINGS: For counting purposes, the last complete intervertebral disc space is considered L5-S1. No acute fractures are identified in the lumbar spine. Vertebral body heights and disk spaces are well maintained. Vertebral body alignment is within normal limits. Surrounding soft tissues are unremarkable. IMPRESSION: No acute fractures of the lumbar spine. Please see CT thoracic spine for findings of T11 and T12 fractures. ACT 112: Negative or not required by law. Electronically signed by: Junior Thomas M.D. 12/08/2023 1:[address] thoracic spine wo con CLINICAL HISTORY: fall, lower thoracic, upper lumbar pain TECHNIQUE: Multidetector row helical CT of the thoracic spine was performed without administration of intravenous contrast. Coronal and sagittal reformations were obtained. Automated dose lowering techniques and/or adjustment according to patient size were utilized for this exam. Comparison: Comparison is made to CT thoracic spine 09/02/2011 FINDINGS: There is an acute compression fracture of T12 with approximately 5 mm retropulsion. There is also a minimally displaced fracture of the superior e ndplate of T11. Vertebral body alignment is within normal limits. Surrounding soft tissues are unremarkable. IMPRESSION: Compression fractures are seen in T11 and T12, there is 5 mm retropulsion at T12 fracture. ACT 112: Negative or not required by law. Electronically signed by: Junior Thomas M.D. 12/08/2023 12:51 PM THORACIC SPINE 3 VIEWS HISTORY: Thoracic spine fractures. Follow-up. standing films with brace attn T11 T12 COMPARISON: Thoracic spine CT 12/08/2023. FINDINGS: Acute mild superior endplate compression fracture at T11 and acute mild to moderate super endplate compression fracture at T12. These remain unchanged compared to the prior CT examination. The small retropulsed fragment at T12 is better appreciated on the recent CT examination. No additional fractures identified within the thoracic spine. No subluxation. Disc spaces are preserved. Cervical spinal fusion hardware is partially visualized. IMPRESSION: No significant change in the acute superior endplate compression fractures at T11 and T12. ACT 112: Negative or not required by law. Electronically signed by: Lonnie Shabazz M.D. 12/10/2023 1:03 PM Ordered Studies 12/08/23 11:36 CT lumbar spine wo con Stat CT thoracic spine wo con Stat Hospital Course (1) Fall: (2) Closed T11 fracture: (3) T12 compression fracture: Plan 33 year old man presented with back pain after fall CT Thoracic and Lumbar spine showed T11 and T12 fracture Continue scheduled tylenol, prn oxycodone Bowel regimen Lidocaine patch Ortho spine surgeon vania noted. Will plan to follow up with him in 2 weeks outpatient for Xrays. Patient has TLSO brace. Pt understands to wear at all times and can take off while sleeping. PT vania noted Thoracolumbar XR today reviewed Patient is not to lift more than 5lb DVT ppx: SCD for now Code status: Full Code A total of 35 minutes were spent with greater than 50% of that time face to face with the patient, personally reviewing all current laboratories, imaging studies, past medication reconciliation, outpatient chart review, and discussion with specialists to collaborate care for the patient with attending. Please see attending documentation for corrections and/or additions. Total Time Total Time Spent Total Time Spent (In Minutes): 35 Discharge Plan Discharge Items Patient Disposition: Home - Self-Care Reason For Visit: BACK PAIN Discharge Diagnosis: Fall, back pain, T11 and T12 fracture Condition on Discharge: Good Activity: Per Instructions section Lifting: No more than 5 pounds Bathing: No limitations Sexual Activity: Wait until after follow-up appointment Exercise/Sports: Wait until after follow-up appointment Driving/Machine Use: You may not drive while taking oxycodone for pain relief Weightbearing: Full weightbearing Non-emergency contact: Primary Care Provider Call non-emergency contact if: you have any medication questions Follow-up/Referrals: Paresh Kirk DO [Surgeon] - 12/24/23 8:30 am (Please call Dr Kirk's office for a 2 week follow up appointment/X-rays.) Kin Guzman MD [Hospitalist] - 12/19/23 1:40 pm (Date & Time 12/19/2023 1:40 PM Provider Kin Guzman MD Department Family Medicine [facility] ) Diet: Regular Addtl Attending Provider Instructions: You were admitted to [facility] due to fall, back pain and diagnosed with T11 and T12 fractures. During your stay here you were treated with supportive care, medications and placed in a TSLO (back brace) per orthopedic spine surgery and your symptoms improved. Imaging studies which were completed include lumbar and thoracic spine imaging , and were abnormal showing the fracutres. Your pain was controlled with oral medications Patient is to wear TLSO brace at all times when out of bed. He may take it off to shower. Lift no more than 5 pounds. Medications: Continue taking you medications as prescribed Tylenol 500-1000 mg (1-2 tablets) three times per day for controlled pain relief. Do NOT take more than 3grams or 3000mg daily. Oxycodone has been sent, use this for severe pain as needed every 6 hours. If you need a refill, please reach out to ortho-spine for this. Continue taking stool softener, miralax for bowels to move while you are taking the oxycodone to prevent constipation. If your bowels dont move within 2-3 days, you may use a laxative such as senna over the counter tablets, or can use milk of magnesia ( over the counter Epsom salt per directions on pack) to assist with severe constipation. Appointments: PCP within 1 week, an appointment has been requested for you. Ortho spine: Please follow-up in our office in 2 weeks for x-rays. Pending Studies at Discharge: No Stand-Alone Forms: [employer], Work/School Release, Smoking Cessation Medications and DC Order Prescriptions: New polyethylene glycol 3350 [Miralax] 17 gram Powder In Packet 17 g PO DAILY PRN (Reason: constipation) Qty: 30 0RF oxycodone 5 mg Tablet 5 - 10 mg PO Q4H PRN (Reason: severe pain (scale score 7-10)) 5 Days Qty: 30 0RF sennosides [Senokot] 8.6 mg Tablet 17.2 mg PO QAM Qty: 7 0RF Continued promethazine 25 mg tablet 25 mg PO Q6H PRN (Reason: nausea and vomiting) Qty: 20 0RF ondansetron 4 mg tablet,disintegrating 4 mg PO Q6H PRN (Reason: nausea and vomiting) Qty: 20 0RF Tylenol 1 tab PO UD PRN (Reason: Pain) Rx Instructions: otc, as directed Discharge Orders: Discharge Order (Routine); Ordered 12/11/23 Ordered By: Oliva Drew Admission Data Admit Date/Time: 12/09/23 15:09 Attending Provider: Theo Pringle Admit Provider: Janis Galvan I. Primary Care Provider: PCP,NO Other Providers: Janis Galvan I.; Paresh Kirk Other Interventions: Discharge Summary Assessment (RN) Last Done: 12/11/23 13:46 Supervising Physician Co-Signing Physician Notes Patient was seen and examined at bedside as a follow-up of back pain after a fall and T11 and 12 compression fracture. Patient reports pain under control, moving bowels okay, orthospine evaluated, patient to follow-up with orthospine upon discharge. Patient to utilize TLSO brace with activity. Can take off while rest and during sleeping. Patient to follow-up with PCP within a week time. On exam, patient on room air, heart/lung/abdominal examination WNL. Rest of the examination as above. I have seen and examined the patient and have discussed the case with the provider above. I agree with the assessment and plan as stated.
== END 2023-12-11 14:22 | disposition home or self-care (01) | DRG 552 ==
LOC: 3N 10:53 → ED 10:53 → 3N 15:51 → SUATTDRO 12-09 15:09